=== PATIENT | female | born 1980 | race Caucasian/White ===

== ENCOUNTER 2017-10-14 19:37 | Emergency (ER) | payer OTHER ==
[~2017-10-14] VITALS: Ht 172.7 cm; Wt 66.4 kg
[~2017-10-14 19:37] MED LIST: CYANOCOBAL1000 MCG/2 IM; ESCITALOPRAM OX10 MG PO; FLAGYL500 MG PO; FLEXERIL10 MG PO; FOLIC ACID1 MG PO; LEXAPRO20 MG PO; MELOXICAM15 MG PO; METHOCARBAMOL750 MG PO; NAPROSYN500 MG PO; PERCOCET 5/31 TABLET PO
[2017-10-14 19:41] VITALS: BP 133/80
== END 2017-10-14 22:45 | disposition left against medical advice (07) ==
LOC: EME 19:37
DX: K04.7 Periapical abscess without sinus (principal); R22.0 Localized swelling, mass and lump, head; Z53.21 Procedure and treatment not carried out due to patient leaving prior to being seen by health care provider